=== PATIENT | male | born 1980 | race Hispanic/Latino ===

== ENCOUNTER 2016-12-22 09:25 | Emergency (ER) | payer OTHER ==
--- NOTE | 2016-12-22 09:46 | ED PDOC ---
Arrival/HPI - General Chief Complaint: Chest Pain Time Seen by Provider: 12/22/16 09:30 Historian: Patient - History of Present Illness Narrative History of Present Illness (Text): 12/22/16 09:45 36 year old male whose past medical history includes aortic valve replacement 5 years ago presents to the emergency department with chest pain that began 1 hour prior to arrival. Patient states it feels like a pressure and is worse with inspiration. Denies fever, nausea, or vomiting. PMD: Non-CPH Time/Duration: 1 hour Symptom Onset: Sudden Symptom Course: Unchanged Modifying Factors (Text): None Associated Symptoms (Text): None Past Medical History - Provider Review Nursing Documentation Reviewed: Yes - Infectious Disease Hx of Infectious Diseases: None - Cardiac Other/Comment: aortic vave replacement 5 yrs ago - Pulmonary Hx Respiratory Disorders: No - Psychiatric Hx Substance Use: No - Surgical History Hx Open Heart Surgery: Yes Hx Valve Replacement: Yes Family/Social History - Physician Review Nursing Documentation Reviewed: Yes Family/Social History: Unknown Family HX Smoking Status: Unknown If Ever Smoked Hx Alcohol Use: Yes Frequency of alcohol use: Socially Hx Substance Use: No Allergies/Home Meds Allergies/Adverse Reactions: Allergies No Known Allergies Allergy (Verified 12/22/16 09:34) Home Medications: Home Meds Medication Instructions Recorded Confirmed No Known Home Med 12/22/16 12/22/16 Review of Systems - Physician Review All systems were reviewed & negative as marked: Yes - Review of Systems Constitutional: absent: Fevers Respiratory: absent: Cough Cardiovascular: Chest Pain Gastrointestinal: absent: Nausea, Vomiting Physical Exam Vital Signs Temp Pulse Resp BP Pulse Ox 12/22/16 10:52 83 16 177/119 H 99 12/22/16 09:38 98.0 F 12/22/16 09:25 80 18 194/128 H 99 - Systems Exam Head: Present: Atraumatic, Normocephalic Pupils: Present: PERRL Extroacular Muscles: Present: EOMI Conjunctiva: Present: Normal Mouth: Present: Moist Mucous Membranes Neck: Present: Normal Range of Motion Respiratory/Chest: Present: Clear to Auscultation, Good Air Exchange. No: Respiratory Distress, Accessory Muscle Use Cardiovascular: Present: Regular Rate and Rhythm, Normal S1, S2. No: Murmurs Abdomen: Present: Normal Bowel Sounds. No: Tenderness, Distention, Peritoneal Signs Back: Present: Normal Inspection Upper Extremity: Present: Normal Inspection. No: Cyanosis, Edema Lower Extremity: Present: Normal Inspection. No: Edema Neurological: Present: GCS=15, CN II-XII Intact, Speech Normal Skin: Present: Warm, Dry, Normal Color. No: Rashes Psychiatric: Present: Alert, Oriented x 3, Normal Insight, Normal Concentration Medical Decision Making ED Course and Treatment: Impression: 36 year old male whose past medical history includes aortic valve replacement 5 years ago presents to the emergency department with chest pain that began 1 hour prior to arrival. Differential Diagnosis include but are not limited to: cp r/o acs. perc neg. Plan: -- EKG, Chest X-ray -- Labs -- Reassess and disposition Progress Notes: Chest X-ray Dumper Operator: Dr. Oliva Brock MD IMPRESSION: No active pulmonary disease 12/22/16 10:53 Patient reassessed. States he feels better. Imaging and bloodwork negative. Requested that patient be observed in hospital. Patient states he does not wish to stay. States he will follow up with termite control representative right after ER discharge. 12/22/16 14:16 - Lab Interpretations Lab Results: 12/22/16 09:50 12/22/16 09:50 Lab Results 12/22/16 11:10: Urine Color Yellow, Urine Appearance Clear, Urine pH 6.0, Ur Specific Hartman 1.020, Urine Protein Negative, Urine Glucose (UA) Negative, Urine Ketones Negative, Urine Blood Negative, Urine Nitrate Negative, Urine Bilirubin Negative, Urine Urobilinogen 0.2, Ur Leukocyte Esterase Negative 12/22/16 09:50: Sodium 140, Potassium 4.7, Chloride 100, Carbon Dioxide 30, Anion Gap 15, BUN 20, Creatinine 0.9, Est GFR ( Amer) > 60, Est GFR (Non- Af Amer) > 60, Random Glucose 98, Calcium 9.8, Magnesium 2.0, Total Bilirubin 0.6, AST 42, ALT 33, Alkaline Phosphatase 56, Lactate Dehydrogenase 633, Total Creatine Kinase 142, Troponin I < 0.01, Total Protein 8.1, Albumin 4.6, Globulin 3.5, Albumin/Globulin Ratio 1.3 12/22/16 09:50: PT 10.6, INR 0.98, APTT 29.9, D-Dimer, Quantitative 0.20 12/22/16 09:50: WBC 8.3, RBC 4.96, Hgb 15.4, Hct 44.7, MCV 90.1, MCH 31.0, MCHC 34.5, RDW 12.6, Plt Count 310, MPV 9.4, Gran % 71.1 H, Lymph % (Auto) 20.5 L, [place] % (Auto) 6.9 H, Eos % (Auto) 1.0 L, Baso % (Auto) 0.5, Gran # 5.88, Lymph # 1.7, [place] # 0.6, Eos # 0.1, Baso # 0.04 - RAD Interpretation Radiology Orders: 12/22/16 09:38 CHEST PORTABLE [RAD] Stat - Scribe Statement The provider has reviewed the documentation as recorded by the Rhys Jimenez Provider Scribe Attestation: All medical record entries made by the Scribe were at my direction and personally dictated by me. I have reviewed the chart and agree that the record accurately reflects my personal performance of the history, physical exam, medical decision making, and the department course for this patient. I have also personally directed, reviewed, and agree with the discharge instructions and disposition. Disposition/Present on Arrival - Present on Arrival Any Indicators Present on Arrival: No History of DVT/PE: No History of Uncontrolled Diabetes: No Urinary Catheter: No History of Decub. Ulcer: No History Surgical Site Infection Following: None - Disposition Have Diagnosis and Disposition been Completed?: Yes Diagnosis: Chest pain Disposition: HOME/ ROUTINE Disposition Time: 14:17 Condition: STABLE Discharge Instructions (ExitCare): Chest Pain (ED) Additional Instructions: please follow up with your doctor/termite control representative. return to er with worsening symptoms or concerns. Referrals: Shazia Rico, [Primary Care Provider] - Follow up with primary Bernadette Kuo MD [Staff Provider] - Follow up with primary
[2016-12-22 09:50] VITALS: O2SAT 99
[2016-12-22 09:56] VITALS: TEMP 98
[2016-12-22 09:57] LABS: ADD MANUAL DIFF? NO
--- NOTE | 2016-12-22 10:00 | RAD ---
HISTORY: Chest pain COMPARISON: No prior. FINDINGS: LUNGS: The lungs are well inflated and clear. PLEURA: No significant pleural effusion identified, no pneumothorax apparent. CARDIOVASCULAR: Heart is normal in size. Status post median sternotomy. OSSEOUS STRUCTURES: No significant abnormalities. VISUALIZED UPPER ABDOMEN: Normal. OTHER FINDINGS: None. IMPRESSION: No active pulmonary disease.
[2016-12-22 10:01] LABS: BASO # 0.04 K/mm3 (0.0-2.0); BASO % 0.5 % (0.0-3.0); EOS # 0.1 (0.0-0.7); GRAN # 5.88 (1.4-6.5); GRAN % 71.1 % (50.0-68.0); HEMATOCRIT 44.7 % (42.0-52.0); LYMPH # 1.7 (1.2-3.4); LYMPH % 20.5 % (22.0-35.0); MEAN CELL VOLUME 90.1 fL (80.0-105.0); MEAN CORPUSCULAR HGB CONC 34.5 g/dl (31.0-37.0); MEAN PLATELET VOLUME 9.4 fl (7.0-11.0); MONO # 0.6 (0.1-0.6); MONO % 6.9 % (1.0-6.0); PLATELET COUNT 310 10^3/uL (120.0-450.0); RED CELL DISTRIBUTION WIDTH 12.6 % (11.5-14.5); WHITE BLOOD COUNT 8.3 10^3/ul (4.5-11.0)
[2016-12-22 10:14] LABS: INR 0.98 (0.93-1.08); PARTIAL THROMBOPLASTIN TIME 29.9 Seconds (23.7-30.8)
[2016-12-22 10:16] LABS: ALB/GLOB RATIO 1.3 (1.1-1.8); ALKALINE PHOSPHATASE 56 U/L (38-133); ALT/SGPT 33 U/L (7-56); AST/SGOT 42 U/L (15-59); BILIRUBIN,TOTAL 0.6 mg/dL (0.2-1.3); BLOOD UREA NITROGEN 20 mg/dL (7-21); CALCIUM 9.8 mg/dL (8.4-10.5); CARBON DIOXIDE 30 mmol/L (21-33); CHLORIDE 100 mmol/L (98-107); GFR AFRICAN-AMERICAN > 60; GLUCOSE,RANDOM 98 mg/dL (70-110); POTASSIUM 4.7 mmol/L (3.6-5.0); SODIUM 140 mmol/L (132-148); TOTAL PROTEIN 8.1 g/dL (5.8-8.3)
[2016-12-22 10:30] LABS: TROPONIN I < 0.01 ng/mL
[2016-12-22 10:39] LABS: D DIMER 0.2 mg/L FEU (0-0.50)
[2016-12-22 10:53] VITALS: PULSE 83; RESP 16
[2016-12-22 11:26] LABS: URINE APPEARANCE CLEAR (CLEAR); URINE BILIRUBIN NEGATIVE (NEGATIVE); URINE BLOOD NEGATIVE (NEGATIVE); URINE COLOR YELLOW (YELLOW); URINE GLUCOSE (UA) NEGATIVE (NEGATIVE); URINE KETONE NEGATIVE (NEGATIVE); URINE LEUKOCYTE ESTERASE NEGATIVE Leu/uL (NEGATIVE); URINE PROTEIN NEGATIVE mg/dL (<30 mg/dL); URINE UROBILINOGEN 0.2 E.U./dL (<1 E.U./dL)
[2016-12-22 11:27] VITALS: BP 177/119
--- NOTE | 2016-12-23 18:00 | CARD ---
APPROVED REPORT EKG Measurement Heart [id number] <Conclusion> Normal sinus rhythm Normal ECG
== END 2016-12-22 11:00 | disposition home or self-care (01) ==
LOC: ED 09:25
DX: R07.9 Chest pain, unspecified (principal); Z95.2 Presence of prosthetic heart valve